=== PATIENT | male | born 1985 | race Asian ===

== ENCOUNTER 2018-03-28 21:03 | Emergency (ER) | payer BC ==
[~2018-03-28] VITALS: Ht 167.6 cm; Wt 63.5 kg
[2018-03-28 21:12] VITALS: BP 114/73
--- NOTE | 2018-03-28 21:16 | NUR ---
PT SENT TO [facility], EVEN STEADY GAIT, NO VOMITING SINCE ARRIVAL IN ED.
--- NOTE | 2018-03-28 21:54 | NUR ---
PT AMBULATED TO BED 12
--- NOTE | 2018-03-28 22:19 | NUR ---
PT PRESENTS TO ED WITH C/O N/V POST EATING X 1 MONTH. DENIES ABD PAIN AND DIARRHEA. ABDOMEN IS SOFT, NON-TENDER. BOWEL SOUNDS ACTIVE X 4 QUADRANTS. PT REPORTS THAT NAUSEA OCCURS AFTER EATING. PT PLACED IN BED AND PENDING MD MAY.
[2018-03-28] MEDS: ONDANSETRON 4 MG ODT PO ONE (23:13)
--- NOTE | 2018-03-28 23:20 | NUR ---
PT TO XRAY VIA WHEELCHAIR.
[2018-03-28 23:59] LABS: BASOPHILS % (AUTO) 0.4 % (0.0-2.0); EOSINOPHILS % (AUTO) 0.5 % (0.0-4.0); HEMATOCRIT 44.2 % (36-52); HEMOGLOBIN 14.8 g/dL (12.0-18.0); LYMPHOCYTES # (AUTO) 1.7 K/uL (2.0-11.5); LYMPHOCYTES % (AUTO) 23.5 % (20.5-51.1); MEAN CORPUSCULAR HEMOGLOBIN 30 pg (27-31); MEAN CORPUSCULAR HGB CONC 34 g/dL (33-37); MEAN CORPUSCULAR VOLUME 90.5 fL (80-94); MONOCYTES # (AUTO) 0.4 K/uL (0.8-1.0); MONOCYTES % (AUTO) 5.7 % (1.7-9.3); NEUTROPHILS # (AUTO) 5.1 K/uL (1.8-7.7); NEUTROPHILS % (AUTO) 69.9 % (42.2-75.2); PLATELET COUNT (AUTO) 221 K/uL (140-450); RED BLOOD CELL COUNT(AUTO) 4.88 MIL/uL (4.20-6.10); RED CELL DISTRIBUTION WIDTH 12.8 % (11.6-13.7); WHITE BLOOD COUNT (AUTO) 7.3 K/uL (4.8-10.8)
[2018-03-29 00:09] LABS: ANION GAP 6.8 (8-16); CARBON DIOXIDE 28.9 mmol/L (21-32); CREATININE 0.9 mg/dL (0.7-1.3); POTASSIUM 3.7 mmol/L (3.5-5.1)
[2018-03-29 00:15] LABS: ALBUMIN 4.2 g/dL (3.4-5.0); TOTAL BILIRUBIN 0.7 mg/dL (0.0-1.0)
--- NOTE | 2018-03-29 00:38 | NUR ---
PT RESTING IN BED. NO NEW COMPLAINTS OR REQUESTS AT THIS TIME. WILL CONTINUE TO MONITOR.
[2018-03-29 01:27] VITALS: BP 119/80
--- NOTE | 2018-03-29 01:28 | NUR ---
Patient discharged with v/s stable. Written and verbal after care instructions given and explained. Patient alert, oriented and verbalized understanding of instructions. Ambulatory with steady gait. All questions addressed prior to discharge. ID band removed. Patient advised to follow up with PMD. Rx of ZOFRAN, LACTULOSE given. Patient educated on indication of medication including possible reaction and side effects. Opportunity to ask questions provided and answered.
== END 2018-03-29 01:27 | disposition home or self-care (01) ==
LOC: MED 21:03
DX: R11.2 Nausea with vomiting, unspecified (principal); F41.9 Anxiety disorder, unspecified; F32.9 Major depressive disorder, single episode, unspecified; K59.09 Other constipation
CPT/HCPCS: 36415; 74022; 80053; 85025; 99285; S0119